=== PATIENT | male | born 1985 | race African-American/Black ===

== ENCOUNTER 2022-04-12 00:15 | Emergency (ER) | payer BC, OTHER ==
[2022-04-12 01:17] VITALS: RESP 20; TEMP 98.1; BMI 39.9
[2022-04-12] MEDS ORDERED: SODIUM CHLORIDE 3,674 ML IV ONE (02:52)
[2022-04-12] MEDS ORDERED: ACETAMINOPHEN 1000 MG/100 ML BAG IVPB ONE (03:44)
[2022-04-12 04:19] LABS: BASO % 0.2 % (0-2.0); HEMATOCRIT 39.1 % (35.4-49); HEMOGLOBIN 12.2 GM/dL (11.7-16.9); LYMPH % 5.8 % (8-40); MCH 26.8 pg (25.7-33.7); MCHC 31.2 g/dl (32.0-35.9); MEAN CELL VOLUME 85.7 fl (80-96); MEAN PLT VOLUME 10.1 fl (7.5-11.1); MONO % 13.6 % (3.8-10.2); NEUT % 80.4 % (42.8-82.8); PLATELET COUNT 296 10^3/uL (134-434); RBC 4.56 M/mm3 (4.00-5.60); RDW 14.4 % (11.9-15.9); WHITE BLOOD COUNT 19.4 K/mm3 (4.0-10.0)
[2022-04-12 04:25] LABS: CHLORIDE 96 mmol/L (98-107); SODIUM 131 mmol/L (136-145)
[2022-04-12 04:27] LABS: ALBUMIN 1.9 g/dl (3.4-5.0); ANION GAP 12 MMOL/L (8-16); BLOOD UREA NITROGEN 31.4 mg/dL (7-18); CALCIUM 8.7 mg/dL (8.5-10.1); CO2 23 mmol/L (21-32); INR 1.45 (0.83-1.09); PROTHROMBIN TIME (PATIENT) 16.7 SEC (9.7-13.0)
[2022-04-12] MEDS ORDERED: VANCOMYCIN/WATER 2 GM/400 ML PREMIX BAG IVPB ONE (04:27)
[2022-04-12] MEDS ORDERED: PIPERACILLIN/TAZOB 4.5 GM 4.5 GM in DEXTROSE 5%-WATER 100 ML IVPB ONE (04:28)
[2022-04-12 04:30] LABS: ACTIVATED PTT 34.2 SECONDS (25.2-36.5); CREATININE 1.9 mg/dL (0.55-1.3); SGPT/ALT 45 U/L (13-61)
[2022-04-12 04:31] LABS: SGOT/AST 43 U/L (15-37)
[2022-04-12 04:32] LABS: BILIRUBIN,TOTAL 0.5 mg/dL (0.2-1); VENOUS BASE EXCESS -0.5 mmol/L (-2-2); VENOUS O2 SATURATION 63.4 % (70-80); VENOUS PCO2 42.9 mmHg (38-52); VENOUS PH 7.379 (7.310-7.410)
[2022-04-12] MEDS ORDERED: CLINDAMYCIN 600MG PREMIX IVPB 600 MG/50 ML BAG IVPB ONE ×2 (04:32→04:52)
[2022-04-12 04:33] LABS: ALK PHOS 129 U/L (45-117)
[2022-04-12] MEDS ORDERED: PIPERACILLIN/TAZOB 4.5 GM 4.5 GM/100 ML BAG IVPB ONE (04:51)
[2022-04-12] MEDS ORDERED: CALCIUM GLUCONATE 10% - 1,000 MG/10 ML VIAL IVPUSH ONE (05:04)
[2022-04-12 05:18] LABS: EPI CELLS 2 /uL (0-25.1); HYALINE CASTS 1 /uL (0-3.1); PH,URINE 5.5 (5.0-8.0); URINE APPEARANCE CLEAR; URINE BACTERIA 1 /uL (0-1359); URINE BILIRUBIN NEGATIVE (NEGATIVE); URINE COLOR YELLOW; URINE GLUCOSE (UA) 3+ (NEGATIVE); URINE KETONE TRACE (NEGATIVE); URINE LEUK ESTERASE NEGATIVE (NEGATIVE); URINE NITRITE NEGATIVE (NEGATIVE); URINE PROTEIN 2+ (NEGATIVE); URINE RBC 14 /uL (0-23.9); URINE UROBILINOGEN 0.2 mg/dL (0.2-1.0); URINE WBC 3 /uL (0-25.8)
[2022-04-12] MEDS ORDERED: CALCIUM GLUCONATE 10% - 1,000 MG/10 ML VIAL ONE (05:32)
[2022-04-12 06:05] LABS: ERYTHROCYTE SEDIMENTATION RATE 91 mm/hr (0-10)
[2022-04-12 06:38] VITALS: BP 136/86; PULSE 103
[2022-04-12 08:28] LABS: GLUCOSE,RANDOM 618 mg/dL (74-106)
== END 2022-04-12 06:51 | disposition short-term general hospital (02) ==
LOC: JER 00:15
PROC: 3E033GC Introduction of Other Therapeutic Substance into Peripheral Vein, Percutaneous Approach (ICD-10-PCS; principal; 2022-04-12)
DX: M72.6 Necrotizing fasciitis (principal)
CPT/HCPCS: 0241U-QW; 36415; 71045-TC-FY; 73630-TC-LT; 80053; 81003; 82010; 82550; 82553; 82803; 83605; 84484; 85025; 85610; 85651; 85730; 86140; 86850; 86900; 86901; 87040; 87086; 87186; 93005; 93010; 99285-25